=== PATIENT | male | born 1970 | race Caucasian/White ===

== ENCOUNTER 2016-05-17 22:19 | Emergency (ER) | payer OTHER ==
[2016-05-17] MEDS ORDERED: Diphtheria,Pertussis(Acell),Tetanus Vaccine 0.5 ML Syringe IM ONE (22:35)
[2016-05-17] MEDS ORDERED: Bacitracin Oint 1 GM U/D Packet TOP ONE (22:35)
--- NOTE | 2016-05-17 22:39 | EDM.PDOC ---
ED HPI Trauma - General Chief Complaint: Lower Extremity Injury/Pain Stated Complaint: PAIN RT FOOT Time Seen by Provider: 05/17/16 22:29 - History of Present Illness INITIAL COMMENTS - FREE TEXT/NARRATIVE: HISTORY AND PHYSICAL: History of present illness: The patient is a 46-year-old male who presents after 150 pound anvil fell onto his right foot just prior to arrival while he was doing work. The patient states that prior to these events he was in his usual state of good health with no systemic complaints and he has no prior history of injury to that foot. He currently complains of pain only at the dorsal aspect of his foot and he feels like his big toe is slightly down. His other toes are without pain or numbness in the remainder of the proximal foot ankle and right leg are without injury or pain. Patient took no pain medication prior to arrival. Patient's last tetanus shot was over 6 years ago. Review of systems: As per history of present illness and below otherwise all systems reviewed and negative. Past medical history: As per history of present illness and as reviewed below otherwise noncontributory. Surgical history: As per history of present illness and as reviewed below otherwise noncontributory. Social history: No reported history of drug or alcohol abuse. Family history: As per history of present illness and as reviewed below otherwise noncontributory. Physical exam: General: Well-developed well-nourished male who is nontoxic and speaking clearly and easily in the ED. Vital signs have been reviewed by me HEENT: Atraumatic, normocephalic, negative for conjunctival pallor or scleral icterus, mucous membranes moist, throat clear, neck supple, nontender, trachea midline. Lungs: Clear to auscultation, breath sounds equal bilaterally, chest nontender. Heart: S1S2, regular in rhythm no overt murmurs Abdomen: Soft, nondistended, nontender. NABS Pelvis: Stable nontender. No right lateral hip tenderness Genitourinary: Deferred. Rectal: Deferred. Extremities: Atraumatic except for the dorsal aspect of the right foot where there is some ecchymosis and soft tissue swelling as well as tenderness and a superficial abrasion is seen. There are no palpable bony deformities appreciated and the toes are intact without tenderness or deformity. The lateral aspect of the foot and proximal foot and ankle are without tenderness bony deformities or tenderness. Os is intact. The legs are, negative for cords or calf pain. Neurovascular unremarkable. Neuro: Awake, alert, oriented. Cranial nerves II through XII unremarkable. Cerebellum unremarkable. Motor and sensory unremarkable throughout. Exam nonfocal. Diagnostics: X-ray right foot Therapeutics: Wound cleansing, bacitracin and dressing, postop shoe,Tdap, patient refused pain medication Impression: Right foot injury/contusion Definitive disposition and diagnosis as appropriate pending reevaluation and review of above. Allergies/ADRs: Allergies No Known Allergies Allergy (Verified 05/17/16 22:32) Home Medications: Ambulatory Orders Amitriptyline [Elavil] 10 mg PO BEDTIME 05/17/16 [Confirmed 05/17/16] atorvaSTATin [Lipitor] 0 mg PO ONETIME 05/17/16 [Confirmed 05/17/16] Review of Systems - Review of Systems Review Of Systems: ROS reveals no pertinent complaints other than HPI. Trauma Exam - Physical Exam Exam: See Below Course - Vital Signs Last Recorded V/S: Last Vital Signs Temp 36.8 C 05/17/16 22:36 Pulse 92 05/17/16 22:36 Resp 18 05/17/16 22:36 BP 135/90 05/17/16 22:36 Pulse Ox 96 05/17/16 22:36 - Orders/Labs/Meds Orders: Active Orders 24 hr Category Date Time Status Vaccines to be Administered [RC] PER UNIT ROUTINE Care 05/17/16 22:35 Active Foot Comp Min 3V Rt [CR] Stat Exams 05/17/16 22:35 Taken DME for Discharge [COMM] Stat Oth 05/17/16 23:14 Ordered Meds: Medications Discontinued Medications Generic Name Dose Route Start Last Admin Trade Name Angel PRN Reason Stop Dose Admin Bacitracin 1 dose 05/17/16 22:35 05/17/16 22:42 Bacitracin Oint 1 Gm TOP 05/17/16 22:36 1 dose ONETIME ONE Administration Diphtheria/Tetanus/Acell Pertussis 0.5 ml 05/17/16 22:35 05/17/16 22:40 Adacel IM 05/17/16 22:36 0.5 ml .ONCE ONE Administration Departure - Departure Time of Disposition: 23:14 Disposition: Home, Self-Care 01 Condition: good Clinical Impression: Contusion of right foot Qualifiers: Encounter type: initial encounter Qualified Code(s): S90.31XA - Contusion of right foot, initial encounter Forms: ED Department Discharge Additional Instructions: The following information is given to patients seen in the emergency department who are being discharged to home. This information is to outline your options for follow-up care. We provide all patients seen in our emergency department with a follow-up referral. The need for follow-up, as well as the timing and circumstances, are variable depending upon the specifics of your emergency department visit. If you don't have a primary care physician on staff, we will provide you with a referral. We always advise you to contact your personal physician following an emergency department visit to inform them of the circumstance of the visit and for follow-up with them and/or the need for any referrals to a consulting specialist. The emergency department will also refer you to a specialist when appropriate. This referral assures that you have the opportunity for followup care with a specialist. All of these measure are taken in an effort to provide you with optimal care, which includes your followup. Under all circumstances we always encourage you to contact your private physician who remains a resource for coordinating your care. When calling for followup care, please make the office aware that this follow-up is from your recent emergency room visit. If for any reason you are refused follow-up, please contact the [facility] emergency department at and ask to speak to the emergency department charge nurse. [address] [place] [address] Dr Codie Mendieta [address] [place] [address] [id number] [facility]- Podiatry [address] [place] [address] Fax: [phone] Use ice to area and keep the wound clean and dry. Use [id number] Tylenol or ibuprofen for pain and followup with one of our test engine mechanic using resources given to above or your family at [facility]. Return to ER as needed and as discussed - My Orders Last 24 Hours: My Active Orders 05/17/16 22:35 Vaccines to be Administered [RC] PER UNIT ROUTINE Foot Comp Min 3V Rt [CR] Stat 05/17/16 23:14 DME for Discharge [COMM] Stat - Assessment/Plan Last 24 Hours: My Active Orders 05/17/16 22:35 Vaccines to be Administered [RC] PER UNIT ROUTINE Foot Comp Min 3V Rt [CR] Stat 05/17/16 23:14 DME for Discharge [COMM] Stat
[2016-05-17 23:26] VITALS: BP 127/85
--- NOTE | 2016-05-18 14:26 | CR ---
EXAM DATE: 05/17/16 PATIENT'S AGE: 46 Patient: JEANNE CHASE Facility: [place], [place] Site . Site : [id number] Study: XRay Extremity foot [id number]/10/2017 10:56:20 PM Ordering Physician: Elton Roth Final Report: INDICATION: trauma, anvil fell on foot TECHNIQUE: Three views of the right foot COMPARISON: None FINDINGS: Bones: Bipartite fibular sesamoid. No fractures or bone lesions. Joint spaces: Unremarkable. Soft tissues: Unremarkable. IMPRESSION: No acute bony abnormality. Dictated by Stephane Rogers MD @ 05/17/2016 11:04:49 PM Dictated by: Stephane Rogers MD @ 05/17/2016 23:04:55 (Electronic Signature) Report Signed by Proxy and Original Signed Document filed in the Medical Record. [email or web address]
== END 2016-05-17 23:24 | disposition home or self-care (01) ==
LOC: MW.ED 22:19
DX: S90.31XA Contusion of right foot, initial encounter (principal); W20.8XXA Other cause of strike by thrown, projected or falling object, initial encounter; Z23 Encounter for immunization; Y92.69 Other specified industrial and construction area as the place of occurrence of the external cause; Y99.0 Civilian activity done for income or pay
CPT/HCPCS: 73630-26-RT; 73630-RT; 90471; 90715; 99282; 99283-25

== ENCOUNTER 2016-11-19 22:43 | Emergency (ER) | payer OTHER ==
[2016-11-19] MEDS ORDERED: Ketorolac 30 MG/ML SDV IVPUSH ONE (23:04)
[2016-11-19] MEDS ORDERED: Sodium Chloride 0.9% 1,000 ML IV ONE (23:04)
[2016-11-19] MEDS ORDERED: Acetaminophen 500 MG Tab PO ONE (23:04)
[2016-11-19] MEDS ORDERED: Ondansetron 4 MG/2 ML SDV IVPUSH ONE (23:05)
[2016-11-19] MEDS ORDERED: Sodium Chloride 0.9% 10 ML Syringe FLUSH PRN (23:05)
[2016-11-19] MEDS ORDERED: Sodium Chloride 0.9% 2.5 ML Syringe FLUSH PRN (23:05)
--- NOTE | 2016-11-19 23:09 | EDM.PDOC ---
ED HPI GENERAL MEDICAL PROBLEM - General Chief Complaint: Fever Stated Complaint: PT HAS FEVER Time Seen by Provider: 11/19/16 22:57 - History of Present Illness INITIAL COMMENTS - FREE TEXT/NARRATIVE: HISTORY AND PHYSICAL: History of present illness: The patient is a 46-year-old male who follows at [facility] and presents with complaints of recurrence of symptoms of cough fever and body aches sore throat nasal/sinus congestion. The patient says that about 2-2-1/2 weeks ago he had a "very bad cold" which he had for over a week and it seemed to improve last weekend. 3 days after his symptoms improved the symptoms returned which started with body aches, generalized weakness, diffuse headache, nasal congestion and fevers up to 103 chills sinus congestion and drainage and cough productive of phlegm. He has been nauseated but not having vomiting. He has no abdominal pain chest pain shortness of breath or diarrhea. He has not had much of an appetite and states that over the last 24 hours he has not taken much fluids. He did not go to see his provider, Dr. Mandeep Goodwin, for these symptoms. The patient last took Tylenol this evening at 5 PM, 6 hours ago, and Motrin at 12 noon, 11 hours ago. Patient has not had any rashes neck pain but does have a vague diffuse headache. He has no specific neck or back pain and his body aches are more diffuse and he just feels so drained. Review of systems: As per history of present illness and below otherwise all systems reviewed and negative. Past medical history: As per history of present illness and as reviewed below otherwise noncontributory. Surgical history: As per history of present illness and as reviewed below otherwise noncontributory. Social history: No reported history of drug or alcohol abuse. Family history: As per history of present illness and as reviewed below otherwise noncontributory. Physical exam: Gen.: Well-developed well-nourished man who is nontoxic and speaking clearly in the ED was slight nasal quality to voice. Vital signs of the note by me including the temperature of 100.4 HEENT: Atraumatic, normocephalic, pupils reactive, negative for conjunctival pallor or scleral icterus, mucous membranes moist, throat clear, neck supple, nontender, trachea midline. Turbinates are boggy bilaterally and there is some mild sinus tenderness on palpation. There are no exudates but his posterior oropharynx is erythematous with a midline uvula. There is no cervical adenopathy anteriorly or posteriorly and no nuchal rigidity. Lungs: Clear to auscultation, breath sounds equal bilaterally, chest nontender. No work of breathing or a accesory muscle use Heart: S1S2, regular, negative for clicks, rubs, or JVD. Abdomen: Soft, nondistended, nontender. Negative for masses or hepatosplenomegaly. Negative for costovertebral tenderness. Pelvis: Stable nontender. Genitourinary: Deferred. Rectal: Deferred. Extremities: Atraumatic, negative for cords or calf pain. Neurovascular unremarkable. Neuro: Awake, alert, oriented. Cranial nerves II through XII unremarkable. Cerebellum unremarkable. Motor and sensory unremarkable throughout. Exam nonfocal. Diagnostics: CBC CMP lactic acid blood cultures 2 UA influenza swab rapid strep Monospot chest x-ray; West Nile virus testing per patient's request Therapeutics: IV fluids Zofran Toradol Tylenol Rocephin I discussed with the patient and at bedside TESTING results. Patient now states to me that he did not have a sore throat and he did not tell me that although he that he did when I was asking him specific questions. This point is somewhat irrelevant in the scheme of his clinical presentation which is more of body aches malaise fatigue headache nasal congestion and cough with fevers. Both the patient and specifically want to be tested for West Nile virus which they are aware has no specific treatment but because they [place] the [place] and [place] and feels he was exposed to mosquitoes and he would like to be tested. I will add that test on and they're aware that this is a send out and will take at least 7 days. I will give the patient dose of Rocephin here although the clinical picture is more viral and I will send him home with antibiotics. I strongly advised him to follow-up with Dr. Goodwin in the clinic on Tuesday and have told them that if the blood cultures are positive will be informed from the ED about the care plan. Impression: Fever, generalized weakness, dehydration, sinusitis Definitive disposition and diagnosis as appropriate pending reevaluation and review of above. Treatments CLAIMS COLLECTOR: Reports: Acetaminophen, NSAIDS headache Pain Score (Numeric/FACES): 5 - Related Data Allergies Allergy/AdvReac Type Severity Reaction Status Date / Time No Known Allergies Allergy Verified 11/19/16 23:00 Home Meds: Home Meds Amitriptyline [Elavil] 10 mg PO BEDTIME 05/17/16 [History] atorvaSTATin [Lipitor] 20 mg PO ONETIME 05/17/16 [History] Past Medical History Cardiovascular History: Reports: High Cholesterol Neurological History: Reports: Other (See Below) Other Neuro History: Restless leg syndrome Social & Family History - Family History Family Medical History: Noncontributory - Tobacco Use Smoking Status *Q: Never Smoker - Recreational Drug Use Recreational Drug Use: No ED ROS GENERAL - Review of Systems Review Of Systems: ROS reveals no pertinent complaints other than HPI. ED EXAM, GENERAL - Physical Exam Exam: See Below (See dictation) Course - Vital Signs Last Recorded V/S: Last Vital Signs Temp 38.0 C 11/19/16 23:01 Pulse 96 11/19/16 23:43 Resp 18 11/19/16 23:43 BP 131/84 11/19/16 23:43 Pulse Ox 94 L 11/19/16 23:43 - Orders/Labs/Meds Orders: Active Orders 24 hr Category Date Time Status Orthostatic Vital Signs [RC] ASDIRECTED Care 11/20/16 00:28 Active Chest 2V [CR] Stat Exams 11/19/16 23:04 Taken CULTURE BLOOD [BC] Stat Lab 11/19/16 23:20 Received CULTURE BLOOD [BC] Stat Lab 11/19/16 23:26 Received CULTURE STREP A CONFIRMATION [RM] Stat Lab 11/19/16 23:25 Results STREP SCRN A RAPID W CULT CONF [RM] Stat Lab 11/19/16 23:25 Results WEST NILE VIRUS PANEL IGG,IGM [REF] Stat Lab 11/20/16 00:27 Received Sodium Chloride 0.9% [Normal Saline] 1,000 ml Med 11/20/16 00:27 Active IV STAT Sodium Chloride 0.9% [Saline Flush] Med 11/19/16 23:05 Active 10 ml FLUSH ASDIRECTED PRN Sodium Chloride 0.9% [Saline Flush] Med 11/19/16 23:05 Active 2.5 ml FLUSH ASDIRECTED PRN Blood Culture x2 Reflex Set [OM.PC] Stat Oth 11/19/16 23:04 Ordered Saline Lock Insert [OM.PC] Stat Oth 11/19/16 23:03 Ordered Medication Orders Sodium Chloride (Normal Saline) 1,000 mls @ 999 mls/hr IV STAT ONE Stop: 11/20/16 01:27 Last Admin: 11/20/16 00:33 Dose: 999 mls/hr Sodium Chloride (Saline Flush) 10 ml FLUSH ASDIRECTED PRN PRN Reason: Keep Vein Open Last Admin: 11/19/16 23:40 Dose: 10 ml Sodium Chloride (Saline Flush) 2.5 ml FLUSH ASDIRECTED PRN PRN Reason: Keep Vein Open Last Admin: 11/19/16 23:38 Dose: 2.5 ml Labs: Laboratory Tests 11/19/16 11/19/16 11/19/16 Range/Units 23:13 23:20 23:20 WBC 11.70 H (4.0-11.0) K/uL RBC 5.09 (4.50-5.90) M/uL Hgb 14.6 (13.0-17.0) g/dL Hct 43.2 (38.0-50.0) % MCV 84.9 (80.0-98.0) fL MCH 28.7 (27.0-32.0) pg MCHC 33.8 (31.0-37.0) g/dL RDW Std Deviation 40.7 (28.0-62.0) fl RDW Coeff of Ezio 13 (11.0-15.0) % Plt Count 176 (150-400) K/uL MPV 10.30 (7.40-12.00) fL Neut % (Auto) 82.5 H (48.0-80.0) % Lymph % (Auto) 8.4 L (16.0-40.0) % [place] % (Auto) 9.0 (0.0-15.0) % Eos % (Auto) 0.0 (0.0-7.0) % Baso % (Auto) 0.1 (0.0-1.5) % Neut # (Auto) 9.7 H (1.4-5.7) K/uL Lymph # (Auto) 1.0 (0.6-2.4) K/uL [place] # (Auto) 1.1 H (0.0-0.8) K/uL Eos # (Auto) 0.0 (0.0-0.7) K/uL Baso # (Auto) 0.0 (0.0-0.1) K/uL Nucleated RBC % 0.0 /100WBC Nucleated RBCs # 0 K/uL Lactate 1.1 (0.20-2.00) mmol/L Sodium (136-146) mmol/L Potassium (3.5-5.1) mmol/L Chloride (98-110) mmol/L Carbon Dioxide (21-31) mmol/L BUN (6.0-23.0) mg/dL Creatinine (0.6-1.5) mg/dL Est Cr Clr Drug Dosing mL/min Estimated GFR (MDRD) ml/min Glucose (60-110) mg/dL Calcium (8.8-10.8) mg/dL Total Bilirubin (0.1-1.5) mg/dL AST (5-40) IU/L ALT (8-54) IU/L Alkaline Phosphatase (40-150) Total Protein (6.0-8.0) g/dL Albumin (3.5-5.0) g/dL Globulin (2.0-3.5) g/dL Albumin/Globulin Ratio (1.3-2.8) Urine Color YELLOW Urine Appearance HAZY Urine pH 6.5 (5.0-8.0) Ur Specific [place] 1.020 (1.001-1.035) Urine Protein 100 (NEGATIVE) mg/dL Urine Glucose (UA) NEGATIVE (NEGATIVE) mg/dL Urine Ketones 40 H (NEGATIVE) mg/dL Urine Occult Blood NEGATIVE (NEGATIVE) Urine Nitrite NEGATIVE (NEGATIVE) Urine Bilirubin SMALL H (NEGATIVE) Urine Ictotest NEGATIVE Urine Urobilinogen 1.0 (<2.0) EU/dL Ur Leukocyte Esterase NEGATIVE (NEGATIVE) Urine RBC 0-2 (0-2/HPF) Urine WBC 0-3 (0-5/HPF) Ur Epithelial Cells RARE (NONE-FEW) Ur Renal Epithelial Cell RARE Urine Bacteria FEW (NEGATIVE) Urine Mucus LIGHT (NONE-MOD) Monoscreen (NEG) 11/19/16 11/19/16 Range/Units 23:20 23:20 WBC (4.0-11.0) K/uL RBC (4.50-5.90) M/uL Hgb (13.0-17.0) g/dL Hct (38.0-50.0) % MCV (80.0-98.0) fL MCH (27.0-32.0) pg MCHC (31.0-37.0) g/dL RDW Std Deviation (28.0-62.0) fl RDW Coeff of Ezio (11.0-15.0) % Plt Count (150-400) K/uL MPV (7.40-12.00) fL Neut % (Auto) (48.0-80.0) % Lymph % (Auto) (16.0-40.0) % [place] % (Auto) (0.0-15.0) % Eos % (Auto) (0.0-7.0) % Baso % (Auto) (0.0-1.5) % Neut # (Auto) (1.4-5.7) K/uL Lymph # (Auto) (0.6-2.4) K/uL [place] # (Auto) (0.0-0.8) K/uL Eos # (Auto) (0.0-0.7) K/uL Baso # (Auto) (0.0-0.1) K/uL Nucleated RBC % /100WBC Nucleated RBCs # K/uL Lactate (0.20-2.00) mmol/L Sodium 137 (136-146) mmol/L Potassium 3.6 (3.5-5.1) mmol/L Chloride 103 (98-110) mmol/L Carbon Dioxide 22 (21-31) mmol/L BUN 16 (6.0-23.0) mg/dL Creatinine 1.0 (0.6-1.5) mg/dL Est Cr Clr Drug Dosing 94.29 mL/min Estimated GFR (MDRD) > 60.0 ml/min Glucose 128 H (60-110) mg/dL Calcium 9.4 (8.8-10.8) mg/dL Total Bilirubin 0.5 (0.1-1.5) mg/dL AST 19 (5-40) IU/L ALT 37 (8-54) IU/L Alkaline Phosphatase 93 (40-150) Total Protein 8.0 (6.0-8.0) g/dL Albumin 4.2 (3.5-5.0) g/dL Globulin 3.8 H (2.0-3.5) g/dL Albumin/Globulin Ratio 1.1 L (1.3-2.8) Urine Color Urine Appearance Urine pH (5.0-8.0) Ur Specific [place] (1.001-1.035) Urine Protein (NEGATIVE) mg/dL Urine Glucose (UA) (NEGATIVE) mg/dL Urine Ketones (NEGATIVE) mg/dL Urine Occult Blood (NEGATIVE) Urine Nitrite (NEGATIVE) Urine Bilirubin (NEGATIVE) Urine Ictotest Urine Urobilinogen (<2.0) EU/dL Ur Leukocyte Esterase (NEGATIVE) Urine RBC (0-2/HPF) Urine WBC (0-5/HPF) Ur Epithelial Cells (NONE-FEW) Ur Renal Epithelial Cell Urine Bacteria (NEGATIVE) Urine Mucus (NONE-MOD) Monoscreen NEGATIVE (NEG) Meds: Medications Generic Name Dose Route Start Last Admin Trade Name Angel PRN Reason Stop Dose Admin Sodium Chloride 1,000 mls @ 999 mls/hr 11/20/16 00:27 11/20/16 00:33 Normal Saline IV 11/20/16 01:27 999 mls/hr STAT ONE Administration Sodium Chloride 10 ml 11/19/16 23:05 11/19/16 23:40 Saline Flush FLUSH 10 ml ASDIRECTED PRN Administration Keep Vein Open Sodium Chloride 2.5 ml 11/19/16 23:05 11/19/16 23:38 Saline Flush FLUSH 2.5 ml ASDIRECTED PRN Administration Keep Vein Open Discontinued Medications Generic Name Dose Route Start Last Admin Trade Name Angel PRN Reason Stop Dose Admin Acetaminophen 1,000 mg 11/19/16 23:04 11/19/16 23:36 Tylenol Extra Strength PO 11/19/16 23:05 1,000 mg ONETIME ONE Administration Sodium Chloride 1,000 mls @ 999 mls/hr 11/19/16 23:04 11/19/16 23:34 Normal Saline IV 11/20/16 00:04 999 mls/hr STAT ONE Administration Ceftriaxone Sodium/Dextrose 2 50 mls @ 100 mls/hr 11/20/16 00:13 11/20/16 00: 34 gm/ Premix IV 11/20/16 00:42 100 mls/hr ONETIME ONE Administration Ketorolac Tromethamine 30 mg 11/19/16 23:04 11/19/16 23:38 Toradol IVPUSH 11/19/16 23:05 30 mg ONETIME ONE Administration Ondansetron HCl 4 mg 11/19/16 23:05 11/19/16 23:37 Zofran IVPUSH 11/19/16 23:06 4 mg ONETIME ONE Administration Departure - Departure Time of Disposition: 00:48 Disposition: Home, Self-Care 01 Condition: Good Clinical Impression: Generalized weakness Fever Qualifiers: Fever type: unspecified Qualified Code(s): R50.9 - Fever, unspecified - Discharge Information Referrals: PCP,None [Primary Care Provider] - Forms: ED Department Discharge Additional Instructions: The following information is given to patients seen in the emergency department who are being discharged to home. This information is to outline your options for follow-up care. We provide all patients seen in our emergency department with a follow-up referral. The need for follow-up, as well as the timing and circumstances, are variable depending upon the specifics of your emergency department visit. If you don't have a primary care physician on staff, we will provide you with a referral. We always advise you to contact your personal physician following an emergency department visit to inform them of the circumstance of the visit and for follow-up with them and/or the need for any referrals to a consulting specialist. The emergency department will also refer you to a specialist when appropriate. This referral assures that you have the opportunity for followup care with a specialist. All of these measure are taken in an effort to provide you with optimal care, which includes your followup. Under all circumstances we always encourage you to contact your private physician who remains a resource for coordinating your care. When calling for followup care, please make the office aware that this follow-up is from your recent emergency room visit. If for any reason you are refused follow-up, please contact the [facility] emergency department at and ask to speak to the emergency department charge nurse. [place] [id number] [place] [address] [facility] Primary care- Internal Medicine and Family [place] [phone] [place] [phone] Goodwin in the clinic to be seen Tuesday or Tuesday of next week and push hydration as we discussed. Please use Tylenol and ibuprofen every 6 hours the fever down for the next 2 days. Please take antibiotic as directed starting on Tuesday as you have received a dose antibiotics here that will cover you until then. ER as needed and as discussed. Please note that you will be called if the culture results indicate any reason for change or plan. He will only be contacted about the West Nile virus is positive otherwise you'll not be contacted for negative results. Dr. Goodwin can also access this information if you choose. - My Orders Last 24 Hours: My Active Orders 11/19/16 23:03 Saline Lock Insert [OM.PC] Stat 11/19/16 23:04 Chest 2V [CR] Stat Blood Culture x2 Reflex Set [OM.PC] Stat 11/19/16 23:05 Sodium Chloride 0.9% [Saline Flush] 10 ml FLUSH ASDIRECTED PRN Sodium Chloride 0.9% [Saline Flush] 2.5 ml FLUSH ASDIRECTED PRN 11/19/16 23:20 CULTURE BLOOD [BC] Stat 11/19/16 23:25 CULTURE STREP A CONFIRMATION [RM] Stat STREP SCRN A RAPID W CULT CONF [RM] Stat 11/19/16 23:26 CULTURE BLOOD [BC] Stat 11/20/16 00:27 WEST NILE VIRUS PANEL IGG,IGM [REF] Stat Sodium Chloride 0.9% [Normal Saline] 1,000 ml IV STAT 11/20/16 00:28 Orthostatic Vital Signs [RC] ASDIRECTED - Assessment/Plan Last 24 Hours: My Active Orders 11/19/16 23:03 Saline Lock Insert [OM.PC] Stat 11/19/16 23:04 Chest 2V [CR] Stat Blood Culture x2 Reflex Set [OM.PC] Stat 11/19/16 23:05 Sodium Chloride 0.9% [Saline Flush] 10 ml FLUSH ASDIRECTED PRN Sodium Chloride 0.9% [Saline Flush] 2.5 ml FLUSH ASDIRECTED PRN 11/19/16 23:20 CULTURE BLOOD [BC] Stat 11/19/16 23:25 CULTURE STREP A CONFIRMATION [RM] Stat STREP SCRN A RAPID W CULT CONF [RM] Stat 11/19/16 23:26 CULTURE BLOOD [BC] Stat 11/20/16 00:27 WEST NILE VIRUS PANEL IGG,IGM [REF] Stat Sodium Chloride 0.9% [Normal Saline] 1,000 ml IV STAT 11/20/16 00:28 Orthostatic Vital Signs [RC] ASDIRECTED
[2016-11-19 23:58] LABS: CHLORIDE,CL 103 mmol/L (98-110); SODIUM,NA 137 mmol/L (136-146)
[2016-11-20] MEDS ORDERED: cefTRIAXone 2 GM in Premix Bag 1 BAG IV ONE (00:13)
[2016-11-20] MEDS ORDERED: Sodium Chloride 0.9% 1,000 ML IV ONE (00:27)
[2016-11-20 02:22] VITALS: BP 96/70
--- NOTE | 2016-11-22 10:45 | CR ---
EXAM DATE: 11/19/16 PATIENT'S AGE: 46 Patient: JEANNE CHASE Facility: [place], [place] Site . Site : 1970 Study: XRay Chest [id number]/13/2017 11:54:42 PM Ordering Physician: Elton Roth Final Report: INDICATION: pain, sob, fever TECHNIQUE: Chest 2 views COMPARISON: None FINDINGS: Cardiovascular and mediastinum: Heart size and vasculature are normal in caliber and appearance. Mediastinum is within normal limits. Lungs and pleural spaces: No focal consolidation. No sign of pleural effusion. No pneumothorax. Bones and soft tissues: No significant findings. IMPRESSION: No acute cardiopulmonary disease. Dictated by Stephane Rogers MD @ 11/20/2016 12:02:27 AM Dictated by: Stephane Rogers MD @ 11/20/2016 00:02:38 (Electronic Signature) Report Signed by Proxy. [facility]ITAL[facility]mar
== END 2016-11-20 02:15 | disposition home or self-care (01) ==
LOC: MW.ED 22:43
DX: E86.0 Dehydration (principal); J32.9 Chronic sinusitis, unspecified; E78.00 Pure hypercholesterolemia, unspecified
CPT/HCPCS: 71020; 80053; 81001; 83605; 85025; 86308; 86788; 86789; 87040; 87081; 87804; 87880; 96361; 96365; 96375; 99284; A9270; J0696; J1885; J2405; J7040; 87077; 87186